=== PATIENT | male | born 1960 | race Caucasian/White ===

== ENCOUNTER 2017-12-05 09:01 | Emergency (ER) | payer MEDICAID ==
[~2017-12-05] VITALS: Ht 180.3 cm; Wt 119.0 kg
[~2017-12-05 09:01] MED LIST: HYDR12.529 PO; LISI2.5T47 PO
[2017-12-05 10:21] LABS: BASOPHILS % 0.6 % (0.0-2.0); EOSINOPHILS % 0.7 % (0.0-5.0); HEMATOCRIT. 24.8 % (42.0-52.0); HEMOGLOBIN. 8.7 g/dL (14.0-18.0); LYMPHOCYTES % 16.2 % (20.0-50.0); MEAN CORPUSCULAR HEMOGLOBIN 36.7 pg (28.0-32.0); MEAN CORPUSCULAR VOLUME 105.3 fL (80.0-94.0); MONOCYTES % 10.2 % (2.0-8.0); NEUTROPHILS % 72.3 % (40.0-76.0); RED BLOOD CELL COUNT 2.36 mill/uL (4.7-6.1); RED CELL DISTRIBUTION WIDTH 15.7 % (11.6-14.6)
[2017-12-05 10:30] LABS: INR 1.3; PROTHROMBIN TIME 13.6 sec (9.4-11.6)
[2017-12-05 10:39] LABS: CHLORIDE 104 mEq/L (98-107)
[2017-12-05 10:49] LABS: MEAN PLATELET VOLUME 6.8 fl (7.4-10.4); PLATELET 105 x1000/uL (130-400); PLATELET ESTIMATE DECREASED
[2017-12-05] MEDS ORDERED: SODIUM BICARBONATE 4% (2.4MEQ) 5ML VIAL IV ONE (11:45)
[2017-12-05] MEDS ORDERED: LIDOCAINE HCL/PF 1% 10 MG/ML 5ML VIAL ONE ×2 (11:45→13:28)
[2017-12-05 14:40] VITALS: BP 112/61
== END 2017-12-05 14:41 | disposition home or self-care (01) ==
LOC: ER 14:12
DX: R18.8 Other ascites (principal); K74.60 Unspecified cirrhosis of liver; D72.819 Decreased white blood cell count, unspecified; D64.9 Anemia, unspecified; D69.6 Thrombocytopenia, unspecified; E83.51 Hypocalcemia; E88.09 Other disorders of plasma-protein metabolism, not elsewhere classified; I10 Essential (primary) hypertension; Z85.9 Personal history of malignant neoplasm, unspecified; Z90.49 Acquired absence of other specified parts of digestive tract
CPT/HCPCS: 36415; 49083; 80053; 83690; 85025; 85610; 87070; 87205; 89050; 99285; J3490; Z7610

== ENCOUNTER 2017-12-08 09:39 | Emergency (ER) | payer MEDICAID ==
[~2017-12-08] VITALS: Ht 188 cm; Wt 130.0 kg
[2017-12-08] MEDS ORDERED: SODIUM CHLORIDE 0.9% 1,000 ML IV ONE (10:19)
[2017-12-08 11:17] LABS: BASOPHILS % 0.5 % (0.0-2.0); EOSINOPHILS % 0.5 % (0.0-5.0); HEMOGLOBIN. 9.1 g/dL (14.0-18.0); LYMPHOCYTES % 11.8 % (20.0-50.0); MEAN CORPUSCULAR HEMOGLOBIN 36.6 pg (28.0-32.0); MEAN CORPUSCULAR VOLUME 104.7 fL (80.0-94.0); NEUTROPHILS % 77.2 % (40.0-76.0); RED BLOOD CELL COUNT 2.48 mill/uL (4.7-6.1); RED CELL DISTRIBUTION WIDTH 15.7 % (11.6-14.6)
[2017-12-08 11:22] LABS: CHLORIDE 105 mEq/L (98-107)
[2017-12-08 11:24] LABS: INR 1.3; PARTIAL THROMBOPLASTIN TIME 29.3 sec (23.4-31.0); PROTHROMBIN TIME 13.4 sec (9.4-11.6)
[2017-12-08 11:34] LABS: PLATELET 117 x1000/uL (130-400)
[2017-12-08] MEDS ORDERED: IOHEXOL-350 100 ML BOTTLE ONE (11:56)
[2017-12-08 15:09] VITALS: BP 121/76
== END 2017-12-08 15:14 | disposition home or self-care (01) ==
LOC: ER 09:58
DX: R55 Syncope and collapse (principal); I95.89 Other hypotension; D50.9 Iron deficiency anemia, unspecified; C22.9 Malignant neoplasm of liver, not specified as primary or secondary; B19.20 Unspecified viral hepatitis C without hepatic coma; R53.1 Weakness; R73.9 Hyperglycemia, unspecified; D61.818 Other pancytopenia; D69.6 Thrombocytopenia, unspecified; E88.09 Other disorders of plasma-protein metabolism, not elsewhere classified; Z68.36 Body mass index [BMI] 36.0-36.9, adult; E87.2 Acidosis; K74.1 Hepatic sclerosis; Z79.899 Other long term (current) drug therapy; Z90.89 Acquired absence of other organs
CPT/HCPCS: 36415; 71275; 80053; 82962; 83735; 83880; 84484; 85025; 85610; 85730; 93005; 96360; 96361; 99285; J7030; Q9967; Z7610

== ENCOUNTER 2017-12-15 13:20 | Emergency (ER) | payer MEDICAID ==
[~2017-12-15] VITALS: Ht 180.3 cm; Wt 128.0 kg
[2017-12-15 15:00] LABS: EOSINOPHILS % 1.3 % (0.0-5.0); HEMATOCRIT. 24.6 % (42.0-52.0); HEMOGLOBIN. 8.7 g/dL (14.0-18.0); LYMPHOCYTES % 14.3 % (20.0-50.0); MEAN CORPUSCULAR VOLUME 105.2 fL (80.0-94.0); MONOCYTES % 11.5 % (2.0-8.0); NEUTROPHILS % 71.9 % (40.0-76.0); RED BLOOD CELL COUNT 2.34 mill/uL (4.7-6.1); RED CELL DISTRIBUTION WIDTH 15.3 % (11.6-14.6)
[2017-12-15 15:02] LABS: CHLORIDE 105 mEq/L (98-107)
[2017-12-15 15:03] LABS: INR 1.3; PROTHROMBIN TIME 13.6 sec (9.4-11.6)
[2017-12-15 15:39] LABS: MEAN PLATELET VOLUME 6.8 fl (7.4-10.4); PLATELET 103 x1000/uL (130-400)
[2017-12-15 17:45] VITALS: BP 122/70
== END 2017-12-15 19:39 | disposition home or self-care (01) ==
LOC: ER 13:20
DX: C22.8 Malignant neoplasm of liver, primary, unspecified as to type (principal); R18.0 Malignant ascites; K74.60 Unspecified cirrhosis of liver; R06.02 Shortness of breath; D53.9 Nutritional anemia, unspecified; D69.6 Thrombocytopenia, unspecified; D72.810 Lymphocytopenia; D72.821 Monocytosis (symptomatic); E87.1 Hypo-osmolality and hyponatremia; E83.51 Hypocalcemia; R73.9 Hyperglycemia, unspecified; E88.09 Other disorders of plasma-protein metabolism, not elsewhere classified; Z68.39 Body mass index [BMI] 39.0-39.9, adult
CPT/HCPCS: 36415; 76705; 80053; 83036; 83690; 85025; 85610; 99285; Z7610

== ENCOUNTER 2017-12-16 07:50 | Emergency (ER) | payer MEDICAID ==
[~2017-12-16] VITALS: Ht 180.3 cm; Wt 128.0 kg
[2017-12-16] MEDS ORDERED: SODIUM BICARBONATE 4% (2.4MEQ) 5ML VIAL IV ONE (08:44)
[2017-12-16] MEDS ORDERED: LIDOCAINE HCL/PF 1% 10 MG/ML 5ML VIAL ONE (08:45)
[2017-12-16 10:53] VITALS: BP 120/68
== END 2017-12-16 10:56 | disposition home or self-care (01) ==
LOC: ER 08:29
DX: R18.8 Other ascites (principal); D61.818 Other pancytopenia; D72.819 Decreased white blood cell count, unspecified; D53.9 Nutritional anemia, unspecified; D69.6 Thrombocytopenia, unspecified; E87.1 Hypo-osmolality and hyponatremia; I10 Essential (primary) hypertension; K75.9 Inflammatory liver disease, unspecified; E88.09 Other disorders of plasma-protein metabolism, not elsewhere classified; R74.0 Nonspecific elevation of levels of transaminase and lactic acid dehydrogenase [LDH]; R73.9 Hyperglycemia, unspecified; R14.0 Abdominal distension (gaseous)
CPT/HCPCS: 49083; 99284; J3490; Z7610

== ENCOUNTER 2017-12-23 07:44 | Emergency (ER) | payer MEDICAID ==
[~2017-12-23] VITALS: Ht 180.3 cm; Wt 128.0 kg
[2017-12-23 09:09] LABS: EOSINOPHILS % 0.7 % (0.0-5.0); HEMATOCRIT. 25.9 % (42.0-52.0); LYMPHOCYTES % 12.5 % (20.0-50.0); MEAN CORPUSCULAR HEMOGLOBIN 36.8 pg (28.0-32.0); MEAN CORPUSCULAR VOLUME 105.7 fL (80.0-94.0); MONOCYTES % 10.6 % (2.0-8.0); NEUTROPHILS % 75.2 % (40.0-76.0); RED BLOOD CELL COUNT 2.45 mill/uL (4.7-6.1); RED CELL DISTRIBUTION WIDTH 15.7 % (11.6-14.6)
[2017-12-23 09:18] LABS: INR 1.3; PARTIAL THROMBOPLASTIN TIME 30.3 sec (23.4-31.0); PROTHROMBIN TIME 13.5 sec (9.4-11.6)
[2017-12-23 09:27] LABS: PLATELET ESTIMATE SLIGHTLY DECREASED
[2017-12-23 09:28] LABS: MEAN PLATELET VOLUME 6.7 fl (7.4-10.4); PLATELET 125 x1000/uL (130-400)
[2017-12-23] MEDS ORDERED: LIDOCAINE HCL 1% 20ML VIAL (Pyxis) INJ ONE (09:48)
[2017-12-23] MEDS ORDERED: SODIUM BICARBONATE 4% (2.4MEQ) 5ML VIAL IV ONE (09:49)
[2017-12-23 12:17] VITALS: BP 108/58
== END 2017-12-23 10:59 | disposition left against medical advice (07) ==
LOC: ER 07:44
DX: K74.60 Unspecified cirrhosis of liver (principal); I10 Essential (primary) hypertension; G89.29 Other chronic pain; R18.8 Other ascites
CPT/HCPCS: 36415; 49083; 85025; 85610; 85730; 99285; J3490; Z7610